=== PATIENT | female | born 2000 | race Two or more races ===

== ENCOUNTER 2023-03-05 15:38 | Emergency (ER) | payer OTHER ==
[~2023-03-05] VITALS: Ht 162.6 cm; Wt 88.6 kg
[2023-03-05 15:46] VITALS: BP 121/64; PULSE 92; RESP 18; TEMP 98.8
[2023-03-05] MEDS ORDERED: IBUP-1492 PO (15:49)
[2023-03-05] MEDS ORDERED: ACET-3385 PO (15:49)
[2023-03-05] MEDS ORDERED: TRAM-559 PO (17:45)
== END 2023-03-05 18:39 | disposition home or self-care (01) ==
LOC: EMS 15:39
DX: S62.306A Unspecified fracture of fifth metacarpal bone, right hand, initial encounter for closed fracture (principal); X58.XXXA Exposure to other specified factors, initial encounter; Y93.89 Activity, other specified; Y92.89 Other specified places as the place of occurrence of the external cause; Y99.8 Other external cause status
CPT/HCPCS: 99283; Z7502